=== PATIENT | female | born 1950 | race Caucasian/White ===

== ENCOUNTER → 2022-06-18 | Outpatient (CLI) | payer MEDICARE, SELFPAY ==
--- NOTE | 2022-06-18 | CYSPIN_PTH ---
PATIENT: SALVATORE LEE LOC: [facility] U#:[id number] AGE/SX: 71/F ROOM: RE06/18/[address]: Dr. Malik De La Cruz MD : 1950 BED: DIS: 06/18/2022 SPEC #: [id number] RECD: 06/18/22 15:00 STATUS: NICOLE MANISH #: [id number] PIOTR: 06/18/22 00:[address]: Malik De La Cruz DEPT: CYTOLOGY RECD BY: Ludwig Urias Tissues: Urine Procedures: Pap Stain (control) Special Stain Group II Cytospin Fluid HEADER OPERATION: Not noted PRE-OP DIAGNOSIS: Hematuria TISSUE SUBMITTED: Urine for cytology DIAGNOSIS CYTOLOGY Urine for cytology (cytospins): Negative for high-grade urothelial carcinoma (Yvonne system, category 2). AM:shira 06/19/22 COMMENT The specimen primarily contains benign squamous epithelial cells and crystalline debris. Clinical correlation is suggested. The Yvonne System for reporting urine cytology was used in the evaluation of this case. CYTOLOGY STUDY Slides are reviewed. CYTOLOGY GROSS Received is 20 ml of cloudy yellow fluid labeled with the patient's name and and designated per the requisition as urine. Submitted for cytology preparation. / keisha 06/19/2022 TC:5 CPT: 67181
[2022-06-18 17:29] LABS: Cytology, Body Fluid / CSF SEE PATHOLOGY REPORT
== END | disposition home or self-care (01) ==
PROVIDERS: Visit Provider Urology
DX: R31.9 Hematuria, unspecified (principal)
CPT/HCPCS: 88108; 88313

== ENCOUNTER → 2022-07-06 | Outpatient (CLI) | payer MEDICARE, SELFPAY ==
--- NOTE | 2022-07-06 12:52 | CT_ITS ---
STUDY: CT ABDOMEN AND PELVIS WITH AND WITHOUT CONTRAST REASON FOR EXAM: Female, 71 years old. GROSS HEMATURIA RADIATION DOSAGE (If Supplied By Facility): CTDIvol = ( 24.55 ) mGy, DLP = ( 3371.81 ) mGycm TECHNIQUE: Transaxial images were obtained from the dome of the diaphragm to the symphysis pubis without oral contrast. IV 100mL Isovue-300 was administered. Sagittal and coronal images were reconstructed. Individualized dose optimization techniques were used for this CT. COMPARISON: None. FINDINGS: The visualized lung bases are unremarkable. The visualized portions of the heart are within normal limits. There is decreased attenuation of the liver consistent with steatosis. There are surgical clips in the gallbladder fossa consistent with a prior cholecystectomy. There is a benign calcified granuloma of the spleen. Normal pancreas. Normal bilateral adrenal glands. There are bilateral nonobstructing renal calculi measuring up to 6 mm on the right and 3 mm on the left. Normal visualized stomach. Normal small intestine. There are multiple colonic diverticula consistent with diverticulosis. The appendix is visualized 3 and appears normal. Normal abdominal aorta. Normal inferior vena cava. Normal retroperitoneum. Normal urinary bladder. There is a small umbilical hernia containing fat. There are diffuse degenerative changes of the visualized lumbar spine. CT/CT Abd/Pelvis W/WO Contrast IMPRESSION: Bilateral nonobstructing renal calculi measuring up to 6 mm on the right. Fatty infiltration of the liver. Colonic diverticulosis. Degenerative changes of the lumbar spine. Electronically Signed: Gali Rodriguez MD at 8:17 EDT ,
[2022-07-06 13:25] LABS: CREATININE FINGERSTICK < 0.9 mg/dL (0.55-1.02); EGFR FINGERSTICK > 60.0000 mL/min (>60)
== END | disposition home or self-care (01) ==
PROVIDERS: PCP Family Medicine; Referring Provider Urology; Visit Provider Urology
DX: R31.0 Gross hematuria (principal); E11.9 Type 2 diabetes mellitus without complications
CPT/HCPCS: 74178; Q9967

== ENCOUNTER → 2022-11-06 | Outpatient (CLI) | payer MEDICARE, SELFPAY ==
[2022-11-06 10:28] LABS: Hematocrit 40.5 % (37-47); Mean Corp Hgb Conc 32.1 g/dL (32-36); Mean Corpuscular Hgb 31.2 pg (27.0-32.0); Mean Corpuscular Volume 97.1 fL (81-99); Mean Platelet Vol. 10.6 fl (6.2-12.0); Platelet Count 259 K/mm3 (150-450); RBC Distribution Width CV 12.8 % (11.6-14.6); RBC Distribution Width SD 45.3 fl (35.1-43.9); Red Blood Count 4.17 M/mm3 (4.2-5.4); White Blood Count 6.9 K/mm3 (4.4-11.0)
[2022-11-06 10:57] LABS: Anion Gap 11 (5-15); BUN 16 mg/dL (7-18); BUN/Creat Ratio 19.7 RATIO (10-20); Calcium,Total 9.6 mg/dL (8.5-10.1); Chloride 100 mmol/L (98-107); Creatinine, Serum 0.81 mg/dL (0.55-1.02); EST Glomerular Filtration Rate 74 mL/min (>60); Est Glom Filt Rate - Afr Amer 89 mL/min (>60); Glucose 209 mg/dL (74-106); Potassium 3.8 mmol/L (3.5-5.1); Sodium Level 137 mmol/L (136-145)
== END | disposition home or self-care (01) ==
LOC: PSN 08:45
PROVIDERS: PCP Family Medicine; Referring Provider Urology; Visit Provider Urology
DX: Z01.812 Encounter for preprocedural laboratory examination (principal); Z01.810 Encounter for preprocedural cardiovascular examination
CPT/HCPCS: 36415; 80048; 85027; 93005

== ENCOUNTER 2022-12-01 09:42 | Day surgery (SDC) | payer MEDICARE, SELFPAY ==
[2022-12-01] MEDS: Lactated Ringers 1,000 ML 15 ML IV (10:39)
[2022-12-01 10:48] VITALS: BP 135/89; PULSE 102; RESP 18; TEMP 36.8; O2SAT 95; BMI 42.2
[2022-12-01 10:56] LABS: Bedside Glucose 164 mg/dL (74-106)
--- NOTE | 2022-12-01 13:00 | PCM.HP.STD ---
HPI - General General Date of Service: 12/01/22 HPI Narrative SALVATORE LEE, is a 71 F who presents for cystoscopy and left stent placement for obstruction she had a acute stent removed after kidney stone surgery presents to the office with pain in the left side ultrasound in the office demonstrates hydronephrosis has been having gross hematuria so at this point plan to place a stent by leave it in for 3 weeks to let it heal up and then we will remove it later in the office in about 3 weeks. REPLACED BY [facility] Medical History (Updated 12/01/22 @ 10:45 by Joanie Orellana) CPAP (continuous positive airway pressure) dependence Diabetes History of irregular heartbeat Post-menopausal Pulmonary embolism Wears glasses Wears hearing aid Home Medications apixaban 5 mg tablet (Eliquis) 5 mg DAILY 12/01/22 [History Last Taken 11/29/22 08:00] ciprofloxacin HCl 500 mg tablet 500 mg PO BID #6 tabs 12/01/22 [Rx Last Taken Unknown] diltiazem HCl 240 mg capsule,extended release 24 hr 240 mg PO DAILY 12/01/22 [History Last Taken 12/01/22] loratadine 10 mg tablet (Claritin) 10 mg PO DAILY 12/01/22 [History Last Taken 11/30/22] metformin 500 mg tablet,extended release 24 hr 500 mg PO DAILY 12/01/22 [History Last Taken 12/01/22] phenazopyridine 100 mg tablet (Pyridium) 100 mg PO TID PRN pain 10 days #20 tabs 12/01/22 [Rx Last Taken Unknown] propafenone 225 mg tablet 225 mg TID 12/01/22 [History Last Taken 12/01/22] Allergy/AdvReac Type Severity Reaction Status Date / Time No Known Allergies Allergy Verified 12/01/22 10:29 Family History (Updated 12/01/22 @ 10:45 by Joanie Orellana) Mother Diabetes Surgical History (Updated 12/01/22 @ 10:47 by Joanie Orellana) History of laparoscopic cholecystectomy History of tonsillectomy Knee joint replacement status Vital Signs Vital Signs Vital Signs: 12/01/22 10:48 12/01/22 10:48 Temperature 98.2 F Temperature Source Temporal Pulse Rate 102 H Respiratory Rate 18 Respiratory Pattern Normal Blood Pressure 135/89 H Blood Pressure Mean 104 Blood Pressure Source Monitor Blood Pressure Position Semi-Fowlers Blood Pressure Location Left Arm Pulse Ox 95 Oxygen Delivery Method Room Air Weight Weight: 104.78 kg Body Mass Index (BMI) 42.2 Results Lab / Micro Data Labs: Laboratory Results - last 24 hr 12/01/22 10:34: POC Glucose 164 H
--- NOTE | 2022-12-01 13:01 | DCINST_ITS ---
Discharge Instructions Diet Discharge Diet: No restrictions, Light diet - advance as tolerated and Soft diet Activity Discharge Activity: Return to Normal Activity Follow Up Care Please Follow Up With: Malik De La Cruz MD When: call office for appt 3 weeks to remove stent Test Results: Test results from this visit will be discussed in further detail at your follow- up appointment, if applicable. Discharge Plan Admission Primary Reason for Your Visit: stent placement Attending Provider: Malik De La Cruz Primary Care Provider: Liu Srinivasan Discharge Orders/Prescriptions Prescriptions: New phenazopyridine [Pyridium] 100 mg tablet 100 mg PO TID PRN (Reason: pain) 10 Days Qty: 20 0RF ciprofloxacin HCl 500 mg tablet 500 mg PO BID Qty: 6 0RF Continued diltiazem HCl 240 mg capsule,extended release 24hr 240 mg PO DAILY propafenone 225 mg tablet 225 mg TID metformin 500 mg tablet extended release 24 hr 500 mg PO DAILY loratadine [Claritin] 10 mg Tablet 10 mg PO DAILY Held Eliquis 5 mg tablet 5 mg DAILY Hold Instructions: Resume on 12/29/22. Referrals / Follow Up: Malik De La Cruz MD [Med Staff - Active Staff] - Liu Srinivasan MD [Primary Care Provider] - Disposition Disposition (needs filled in before D/C Order can be placed): Home, Self Care
[2022-12-01] MEDS: Cefazolin 2 GM in 0.9% Normal Saline 100 ML IV (13:11)
--- NOTE | 2022-12-01 13:26 | PCM.OPRPT ---
Report of Operation Date of Procedure: 12/01/22 Pre-Operative Diagnosis: Left hydronephrosis and gross hematuria Post-Operative Diagnosis: The same Surgery/Procedure Performed:: Cystoscopy, left retrograde pyelogram pyelogram, left stent placement Description of Surgical Findings:: Patient was taken back to the operating room for smooth duction of general anesthesia she was placed in dorsolithotomy position. We then prepped and draped the patient in usual fashion when the bladder 21 Yoruba rigid cystourethroscope cannulated the left ureteral orifice with a cone-tip catheter performed a retrograde pyelogram contrast went up the ureter quite easily all the way up into the kidney no clear obstruction but there was some blood. She had a stent removed from a prior kidney stone surgery but was having pain and he and bleeding and hydronephrosis so then after through the wire I placed a wire up into the kidney and then placed a stent 6 right Yoruba by 26 cm stent we will leave the stent in for another 2 to 3 weeks let it heal up bladder was drained patient anesthetic was reversed taken back to PACU in good condition. Surgeon: Malik De La Cruz Type of Anesthesia: General Admit VTE Documentation VTE Present on Admission: No VTE Mechan Device Prophylaxis: SCD's VTE Pharm Prophylaxis ordered?: No
[2022-12-01 13:37] VITALS: BP 135/89; BP 136/71; PULSE 76; RESP 16; TEMP 36.6; O2SAT 97
[2022-12-01 13:42] VITALS: BP 128/72; BP 135/89; PULSE 75; RESP 16; O2SAT 94
[2022-12-01 13:47] VITALS: BP 130/71; BP 135/89; PULSE 76; RESP 16; O2SAT 95
[2022-12-01 13:52] VITALS: BP 130/71; BP 135/89; PULSE 75; RESP 16; TEMP 36.7; O2SAT 95
[2022-12-01 14:34] VITALS: BP 135/89
== END 2022-12-01 14:40 | disposition home or self-care (01) ==
LOC: SDC 09:44 → AC 09:54
PROVIDERS: PCP Family Medicine; Referring Provider Urology; Visit Provider Urology
PROC: (CPT 52332; principal; 2022-12-01 12:50)
DX: N13.30 Unspecified hydronephrosis (principal); E11.9 Type 2 diabetes mellitus without complications; R31.0 Gross hematuria; Z79.84 Long term (current) use of oral hypoglycemic drugs; Z79.01 Long term (current) use of anticoagulants; Z79.899 Other long term (current) drug therapy; Z87.442 Personal history of urinary calculi
CPT/HCPCS: 52332; 00910; 76000; 82962; J7120; C1769; C2617; J2405

== ENCOUNTER 2022-12-30 13:23 | Emergency (ER) | payer MEDICARE, SELFPAY ==
[2022-12-30 13:24] VITALS: BP 151/80; PULSE 92; RESP 16; TEMP 36.6; O2SAT 97; BMI 41.7
--- NOTE | 2022-12-30 13:39 | CT_ITS ---
STUDY: CT ABDOMEN AND PELVIS WITHOUT CONTRAST REASON FOR EXAM: Female, 72 years old. Right flank pain RADIATION DOSAGE (If Supplied By Facility): CTDIvol = ( 21.84 ) mGy, DLP = ( 1085.83 ) mGycm TECHNIQUE: Transaxial images were obtained from the dome of the diaphragm to the symphysis pubis without oral contrast, and without intravenous contrast. Sagittal and coronal images were reconstructed. Individualized dose optimization techniques were used for this CT. COMPARISON: Comparison is made with prior examination July 06, 2022. FINDINGS: The visualized lung bases are unremarkable. The visualized portions of the heart are within normal limits. There is decreased attenuation of the liver consistent with steatosis. There are surgical clips in the gallbladder fossa consistent with a prior cholecystectomy. Normal spleen. Normal pancreas. Normal bilateral adrenal glands. Moderate degree of the right hydronephrosis due to a 4.5 mm calculus in the distal portion of the right ureter just proximal to the ureterovesical junction. Right perinephric stranding. Multiple nonobstructive right intrarenal calculi. The largest is in the lower pole and measures 8.3 mm. Mild degree of left hydronephrosis. No obstructive uropathy is seen on the left side at this time. Incidental note is made of a left retroaortic renal vein. There is a small hiatal hernia. Normal small intestine. There are multiple colonic diverticula consistent with diverticulosis. The appendix is visualized and appears normal. There is scattered atherosclerotic calcification of the abdominal aorta, without a demonstrated aneurysm. Normal inferior vena cava. Normal retroperitoneum. The urinary bladder is contracted. Normal abdominal wall. There are degenerative changes of the visualized lumbar spine. CT/Abdomen/Pelvis without Cont IMPRESSION: 4.5 mm calculus in the distal portion of the right ureter just proximal to the ureterovesical junction causing right hydronephrosis. Nonobstructive right intrarenal calculi. Fatty infiltration of the liver. The patient is status post cholecystectomy. Electronically Signed: Rusty Perdue MD at 14:37 EDT ,
--- NOTE | 2022-12-30 13:40 | ED.VIS.FEGU ---
HPI HPI - Female History of Present Illness Chief Complaint: Flank Pain Narrative Narrative: 72-year-old female with history of kidney stones presents with acute onset right flank pain which began last evening. She states it feels like previous kidney stone although she last kidney stone she had was on the left side. She states she was seen by Dr. De La Cruz. She states that she did have a stent placed on the left side for her kidney stones back at that time. She states that there was a small stone noted in the right side however she was asymptomatic on this side. She states she did not receive a stent at that time because her ureter was narrow. Patient denies fever or chills. Denies nausea or vomiting. She states she does have dysuria and urinary frequency. Patient also reports that she had diarrhea today. She is unsure if it is related to what she ate last night. She states that she had mixed vegetables as well as a salad. This morning she ate 1 hard-boiled egg. [facility] Medical History CPAP (continuous positive airway pressure) dependence Diabetes History of irregular heartbeat Post-menopausal Pulmonary embolism Wears glasses Wears hearing aid Home Medications apixaban 5 mg tablet (Eliquis) 5 mg DAILY 12/01/22 [History Last Taken 11/29/22 08:00] ciprofloxacin HCl 500 mg tablet 500 mg PO BID #6 tabs 12/01/22 [Rx Last Taken Unknown] diltiazem HCl 240 mg capsule,extended release 24 hr 240 mg PO DAILY 12/01/22 [History Last Taken 12/01/22] loratadine 10 mg tablet (Claritin) 10 mg PO DAILY 12/01/22 [History Last Taken 11/30/22] metformin 500 mg tablet,extended release 24 hr 500 mg PO DAILY 12/01/22 [History Last Taken 12/01/22] phenazopyridine 100 mg tablet (Pyridium) 100 mg PO TID PRN pain 10 days #20 tabs 12/01/22 [Rx Last Taken Unknown] propafenone 225 mg tablet 225 mg TID 12/01/22 [History Last Taken 12/01/22] tramadol 50 mg tablet 50 mg PO Q6H PRN pain 3 days #12 tabs 12/30/22 [Rx Last Taken Unknown] Allergy/AdvReac Type Severity Reaction Status Date / Time chlorpheniramine AdvReac Other Verified 12/30/22 13:28 [From Aller-Chlor Decongestant] oxycodone AdvReac Other Verified 12/30/22 13:28 pseudoephedrine AdvReac Other Verified 12/30/22 13:28 [From Aller-Chlor Decongestant] Family History Mother Diabetes Surgical History History of laparoscopic cholecystectomy History of tonsillectomy Knee joint replacement status Social History Smoking Status: Never smoker EXAM Physical Exam Const Vital Signs: 12/30/22 13:24 Temperature 98 F Temperature Source Temporal Pulse Rate 92 Respiratory Rate 16 Blood Pressure 151/80 H Blood Pressure Mean 103 Pulse Ox 97 Oxygen Delivery Method Room Air Positive well nourished General Appearance ED: NAD HEENT Reports moist mucous membranes Eyes PERRL and EOMs intact bilaterally General Eye ED: Negative for pale conjunctiva or scleral icterus Neck no lymphadenopathy Chest Wall inspection of chest normal Resp normal respiratory effort and clear to auscultation bilaterally Cardio regular rate and regular rhythm GI Palpation: tender RUQ Back/Spine General Back: CVA tenderness right Neuro oriented x3 Sensorium / Orientation: alert Psych mental status grossly normal Skin no rashes or lesions noted MDM MDM MDM Narrative Medical decision making narrative: 72-year-old female presenting with right flank pain. She is concerned with a kidney stone. He states he did have diarrhea today. Denies black or bloody stool. I did consider acute cholecystitis however the patient had does not a gallbladder. Differential includes gastritis, GERD, diverticulitis, colitis, kidney stone, pyelonephritis, UTI. CBC to assess white blood cell count, hemoglobin, platelets, differential. CMP to assess liver function, renal function, glucose, anion gap. Lipase to assess for pancreatitis. Patient given 4 mg of morphine and 4 mg of Zofran. Urinalysis will be obtained to assess for UTI and occult blood. CT of the and pelvis without contrast will be obtained to rule out kidney stone. CBC shows slight leukocytosis. Hemoglobin monitor stable. Platelets are normal. Creatinine slightly elevated 1.26 today. She was given a liter normal saline. Electrolytes unremarkable. LFTs are unremarkable. Lipase is normal. Urinalysis negative for infection. Patient's pain was controlled with morphine. CT of the abdomen pelvis without contrast shows a 4.5 distal ureteral stone on the right. Discussed with Dr. De La Cruz who believed that the patient would likely pass the stone since it is distal in the ureter. He recommended outpatient follow-up. Patient very hesitant to take [place] because she is very much did not like oxycodone. She stated made her very drowsy and she was unable to wake up. She was amenable to trying Ultram. First dose was given in the ER. She will be given a prescription for this for home. She will follow-up with urology. Return precautions discussed. Because of her creatinine being elevated today I did recommend that she stay away from NSAIDs. She acknowledges standing. Impression: 1. 4.5 mm right UVJ stone 2. Hematuria Lab Data Labs: Laboratory Results - last 24 hr 12/30/22 12/30/22 12/30/22 13:30 13:45 13:45 WBC 14.1 H RBC 4.59 Hgb 14.2 Hct 43.2 MCV 94.1 MCH 30.9 MCHC 32.9 RDW Std Deviation 43.8 RDW Coeff of Julio 12.7 Plt Count 270 MPV 10.2 Immature Gran % (Auto) 0.300 Neut % (Auto) 77.7 H Lymph % (Auto) 13.8 L [place] % (Auto) 7.2 Eos % (Auto) 0.6 Baso % (Auto) 0.4 Absolute Neuts (auto) 10.9 H Absolute Lymphs (auto) 1.94 Nucleated RBC % 0 Sodium 133 L Potassium 3.6 Chloride 101 Carbon Dioxide 25.0 Anion Gap 7 BUN 16 Creatinine 1.26 H Estim Creat Clear Calc 31.92 Est GFR (MDRD) Af Amer 54 L Est GFR (MDRD) Non-Af 44 L BUN/Creatinine Ratio 12.7 Glucose 150 H Calcium 10.2 H Total Bilirubin 0.60 AST 25 ALT 20 Alkaline Phosphatase 90 Total Protein 8.4 H Albumin 3.9 Globulin 4.5 H Albumin/Globulin Ratio 0.9 Lipase 33 Urine Color Yellow Urine Clarity Clear Urine pH 6.0 Ur Specific [place] 1.015 Urine Protein Negative Urine Glucose (UA) Normal Urine Ketones Negative Urine Occult Blood 50 H Urine Nitrite Negative Urine Bilirubin Negative Urine Urobilinogen Normal Ur Leukocyte Esterase Negative Urine RBC 0 SEEN Urine WBC 0-5 SEEN Ur Squamous Epith Cells 0-5 SEEN Urine Bacteria 0 SEEN Urine Mucus 0 SEEN Radiography Diagnostic Testing: Clinical Impression(s) from Imaging Studies Abdomen/Pelvis CT 12/30/22 13:39 IMPRESSION: 4.5 mm calculus in the distal portion of the right ureter just proximal to the ureterovesical junction causing right hydronephrosis. Nonobstructive right intrarenal calculi. Fatty infiltration of the liver. The patient is status post cholecystectomy. Electronically Signed: Rusty Perdue MD at 14:37 EDT , Discharge Plan Triage Chief Complaint: Flank Pain ED Provider: Manav Hicks Dx/Rx/DC Orders Instructions: ED Kidney Stone w/ Colic Prescriptions: New tramadol 50 mg tablet 50 mg PO Q6H PRN (Reason: pain) 3 Days Qty: 12 0RF No Action diltiazem HCl 240 mg capsule,extended release 24hr 240 mg PO DAILY propafenone 225 mg tablet 225 mg TID metformin 500 mg tablet extended release 24 hr 500 mg PO DAILY loratadine [Claritin] 10 mg Tablet 10 mg PO DAILY Eliquis 5 mg tablet 5 mg DAILY Hold Instructions: Resume on 12/29/22. phenazopyridine [Pyridium] 100 mg tablet 100 mg PO TID PRN (Reason: pain) 10 Days Qty: 20 0RF ciprofloxacin HCl 500 mg tablet 500 mg PO BID Qty: 6 0RF Primary Care Provider: Liu Srinivasan Referrals: Malik De La Cruz MD [Med Staff - Active Staff] - As soon as possible Liu Srinivasan MD [Primary Care Provider] - Disposition Disposition: Home, Self Care
[2022-12-30] MEDS: Ondansetron 4 MG/2 ML Vial IV (13:53)
[2022-12-30] MEDS: Morphine 4 MG/ML Syringe IV (13:55)
[2022-12-30 14:11] LABS: Absolute Lymphocyte Count 1.94 X10^3/uL (0.83-4.51); Absolute Neutrophil Count 10.9 X10^3/uL (2.0-7.7); Basophil# 0.05 X10^3/uL; Basophil% 0.4 % (0-1); Eosinophil# 0.08 X10^3/uL; Eosinophils% 0.6 % (0-5); Hematocrit 43.2 % (37-47); Hemoglobin 14.2 g/dL (12.0-15.0); Lymphocyte # 1.94 X10^3/ul (0.83-4.51); Lymphocyte % 13.8 % (19-41); Mean Corp Hgb Conc 32.9 g/dL (32-36); Mean Corpuscular Hgb 30.9 pg (27.0-32.0); Mean Corpuscular Volume 94.1 fL (81-99); Mean Platelet Vol. 10.2 fl (6.2-12.0); Monocyte# 1.01 X10^3/uL; Monocyte% 7.2 % (0-10); NRBC Flagged by Analyzer 0 % (0-5); Neutrophil # 10.94 X10^3/uL (2.7-7.7); Neutrophil % 77.7 % (47-70); Platelet Count 270 K/mm3 (150-450); RBC Distribution Width CV 12.7 % (11.6-14.6); RBC Distribution Width SD 43.8 fl (35.1-43.9); Red Blood Count 4.59 M/mm3 (4.2-5.4); White Blood Count 14.1 K/mm3 (4.4-11.0)
[2022-12-30 14:17] LABS: Bacteria 0 SEEN /hpf (None Seen); Mucous, Urine 0 SEEN /hpf (<or=2+); Red Blood Cells-Urine 0 SEEN /hpf (0-5)
[2022-12-30 14:23] LABS: Color, Urine Yellow (Yellow); Glucose, Dipstick Normal (Normal); Ketone-Dipstick Negative (Negative); Leukocyte Esterase-Dipstick Negative /ul (Negative); Nitrite-Dipstick Negative (Negative); Occult Blood-Urine 50 /ul (Negative); Protein-Dipstick Negative (Negative); Specific Gravity, Urine 1.015 (1.002-1.030); Urine Bilirubin Dipstick Negative (Negative); Urine Clarity Clear (Clear); Urine Urobilinogen Normal (Normal)
[2022-12-30 14:28] LABS: ALB/GLOB Ratio 0.9 RATIO (0.9-2.4); AST(SGOT) 25 U/L (15-37); Alanine Aminotransfer ALT/SGPT 20 U/L (13-56); Albumin, Serum 3.9 g/dL (3.2-5.0); Alkaline Phosphatase 90 U/L (45-117); Anion Gap 7 (5-15); BUN 16 mg/dL (7-18); BUN/Creat Ratio 12.7 RATIO (10-20); Calcium,Total 10.2 mg/dL (8.5-10.1); Chloride 101 mmol/L (98-107); Creatinine, Serum 1.26 mg/dL (0.55-1.02); EST Glomerular Filtration Rate 44 mL/min (>60); Est Glom Filt Rate - Afr Amer 54 mL/min (>60); Estimated Creatinine Clearance 31.92 ml/min; Globulin 4.5 g/dL (2.2-4.2); Glucose 150 mg/dL (74-106); Lipase 33 U/L (13-75); Potassium 3.6 mmol/L (3.5-5.1); Protein, Total 8.4 g/dL (6.4-8.2); Sodium Level 133 mmol/L (136-145)
[2022-12-30 14:32] LABS: Squamous Epithelial Cells - UA 0-5 SEEN /hpf (5-10); White Blood Cells 0-5 SEEN /hpf (0-5)
[2022-12-30] MEDS: 0.9% Normal Saline 1,000 ML 999 ML IV (14:41)
[2022-12-30] MEDS: traMADol 50 MG Tablet PO (15:20)
[2022-12-30 15:24] VITALS: BP 141/75; O2SAT 95
== END 2022-12-30 15:32 | disposition home or self-care (01) ==
PROVIDERS: Emergency Provider Student in an Organized Health Care Education/Training Program; PCP Family Medicine; Visit Provider Student in an Organized Health Care Education/Training Program
DX: N13.2 Hydronephrosis with renal and ureteral calculous obstruction (principal); E11.9 Type 2 diabetes mellitus without complications; R31.9 Hematuria, unspecified; Z87.442 Personal history of urinary calculi
CPT/HCPCS: 74176; 80053; 81001; 83690; 85025; 87086; 87088; 96361; 96374; 96375; 99283; J7030; A4216; J2405

== ENCOUNTER → 2023-02-02 | Outpatient (CLI) | payer MEDICARE, SELFPAY | END | disposition home or self-care (01) | PROVIDERS: PCP Family Medicine; Visit Provider Urology | DX: N21.0 Calculus in bladder (principal) | CPT/HCPCS: 82360 ==

== ENCOUNTER → 2023-06-08 | Outpatient (CLI) | payer MEDICARE, SELFPAY ==
[2023-06-18 14:40] LABS: Source Not Provided
== END | disposition home or self-care (01) ==
LOC: LABSPEC 16:32
PROVIDERS: PCP Family Medicine; Referring Provider Urology; Visit Provider Urology
DX: N20.1 Calculus of ureter (principal)
CPT/HCPCS: 82360

== ENCOUNTER 2024-07-18 09:33 | Observation (INO) | payer MEDICARE, SELFPAY ==
[2024-07-18] VITALS (8 sets, daily range): BP systolic 133–159; BP diastolic 73–93; PULSE 71–99; RESP 14–20; TEMP 36.2–37; O2SAT 96–100; BMI 42.3; BMI 41.7
[2024-07-18 10:16] LABS: Bacteria 0 SEEN /hpf (None Seen); Mucous, Urine 0 SEEN /hpf (<or=2+); Squamous Epithelial Cells - UA 0 SEEN /hpf (5-10); White Blood Cells 0 SEEN /hpf (0-5)
[2024-07-18] MEDS: Ondansetron 4 MG/2 ML Vial IV (10:17)
[2024-07-18 10:18] LABS: Color, Urine Yellow (Yellow); Glucose, Dipstick Normal (Normal); Ketone-Dipstick Negative (Negative); Leukocyte Esterase-Dipstick 25 /ul (Negative); Nitrite-Dipstick Negative (Negative); Occult Blood-Urine 250 /ul (Negative); Protein-Dipstick 30 mg/dl (Negative); Specific Gravity, Urine 1.015 (1.002-1.030); Urine Bilirubin Dipstick Negative (Negative); Urine Clarity Sl. Cloudy (Clear); Urine Urobilinogen 1 mg/dl (Normal); Urine pH 6.5 (5.0 - 8.0)
[2024-07-18] MEDS: Morphine 4 MG/ML Syringe IV (10:18)
[2024-07-18 10:24] LABS: Red Blood Cells-Urine > 100 SEEN /hpf (0-5)
[2024-07-18 10:32] LABS: Absolute Lymphocyte Count 1.61 X10^3/uL (0.83-4.51); Absolute Neutrophil Count 4.9 X10^3/uL (2.0-7.7); Basophil# 0.06 X10^3/uL; Basophil% 0.9 % (0-1); Eosinophil# 0.06 X10^3/uL; Eosinophils% 0.9 % (0-5); Hematocrit 39.7 % (37-47); Hemoglobin 12.8 g/dL (12.0-15.0); Lymphocyte # 1.61 X10^3/ul (0.83-4.51); Lymphocyte % 23.1 % (19-41); Mean Corp Hgb Conc 32.2 g/dL (32-36); Mean Corpuscular Volume 96.1 fL (81-99); Mean Platelet Vol. 9.6 fl (6.2-12.0); Monocyte# 0.36 X10^3/uL; Monocyte% 5.2 % (0-10); NRBC Flagged by Analyzer 0 % (0-5); Neutrophil # 4.86 X10^3/uL (2.7-7.7); Neutrophil % 69.5 % (47-70); Platelet Count 226 K/mm3 (150-450); RBC Distribution Width CV 12.8 % (11.6-14.6); RBC Distribution Width SD 45.3 fl (35.1-43.9); Red Blood Count 4.13 M/mm3 (4.2-5.4)
[2024-07-18 10:45] LABS: Anion Gap 7 (5-15); BUN 14 mg/dL (7-18); BUN/Creat Ratio 20.1 RATIO (10-20); Calcium,Total 9.5 mg/dL (8.5-10.1); Chloride 106 mmol/L (98-107); EST Glomerular Filtration Rate 87 mL/min (>60); Est Glom Filt Rate - Afr Amer 106 mL/min (>60); Estimated Creatinine Clearance 73.88 ml/min; Glucose 175 mg/dL (74-106); Sodium Level 139 mmol/L (136-145)
[2024-07-18] MEDS: Cefazolin 1 GM/50 ML BAG IV ×2 (12:04→22:24)
[2024-07-18] MEDS: Atorvastatin Calcium 10 MG Tablet PO (22:32)
[2024-07-19] VITALS (11 sets, daily range): BP systolic 125–147; BP diastolic 76–90; PULSE 78–93; RESP 16–18; TEMP 36.3–37.6; O2SAT 90–98; BMI 41.7
[2024-07-19] MEDS: Loratadine 10 MG Tablet PO (09:32)
[2024-07-19] MEDS: dilTIAZem CD 240 MG Capsule PO (09:32)
[2024-07-19] MEDS: Losartan Potassium 25 MG Tablet PO (09:32)
[2024-07-19] MEDS: Lactated Ringers 1,000 ML 15 ML IV (15:41)
[2024-07-19 16:01] LABS: Bedside Glucose 129 mg/dL (74-106)
[2024-07-19] MEDS: Cefazolin 1 GM/50 ML BAG IV (16:29)
[2024-07-19] MEDS: Ketorolac 15 MG/ML Vial IV (19:24)
[2024-07-19] MEDS: Atorvastatin Calcium 10 MG Tablet PO (20:12)
== END 2024-07-19 20:30 | disposition home or self-care (01) ==
LOC: ED 12:07 → MS3 14:27
PROVIDERS: Admitting Provider Urology; Emergency Provider Emergency Medicine; PCP Physician Assistant; Visit Provider Urology
PROC: 0TJ98ZZ Inspection of Ureter, Via Natural or Artificial Opening Endoscopic (ICD-10-PCS; CPT 52352; principal; 2024-07-19 15:40)
DX: N13.2 Hydronephrosis with renal and ureteral calculous obstruction (principal); I48.91 Unspecified atrial fibrillation; E11.9 Type 2 diabetes mellitus without complications; Z79.01 Long term (current) use of anticoagulants; Z79.84 Long term (current) use of oral hypoglycemic drugs; Z86.711 Personal history of pulmonary embolism; Z79.899 Other long term (current) drug therapy
CPT/HCPCS: 52356; 00918; 74176; 80048; 81001; 82962; 85025; 93005; 96365; 96366; 96375; 99221; 99285; J7050; J7120; A4216; C1769; C2617; G0378; J2405

== ENCOUNTER → 2024-09-11 | Outpatient (CLI) | payer MEDICARE, SELFPAY ==
--- NOTE | 2024-09-11 14:00 | RAD_ITS ---
HISTORY: KIDNEY STONE. TECHNIQUE: XR Abdomen 1 View. COMPARISON: CT 07/18/2024. FINDINGS: BOWEL GAS PATTERN: No dilated bowel loops identified. FREE AIR: Not assessed on supine view. CALCIFICATIONS: Small calculi in the right renal pelvis noted. Soft tissue calcification adjacent to the right pelvis again seen. BONES: Degenerative change. SOFT TISSUES: Right upper quadrant surgical clips. RAD/Abdomen Single View IMPRESSION: Right nephrolithiasis. Electronically Signed: Kristi Suh MD at 12:01 EST ,
== END | disposition home or self-care (01) ==
PROVIDERS: PCP Physician Assistant; Referring Provider Nurse Practitioner; Visit Provider Nurse Practitioner
DX: N20.0 Calculus of kidney (principal)
CPT/HCPCS: 74018

== ENCOUNTER → 2024-10-10 | Outpatient (CLI) | payer MEDICARE, SELFPAY ==
[2024-10-10 19:19] LABS: Color, Urine Yellow (Yellow); Glucose, Dipstick Normal (Normal); Ketone-Dipstick Negative (Negative); Leukocyte Esterase-Dipstick 100 /ul (Negative); Nitrite-Dipstick Negative (Negative); Occult Blood-Urine 250 /ul (Negative); Protein-Dipstick 30 mg/dl (Negative); Specific Gravity, Urine 1.015 (1.002-1.030); Urine Bilirubin Dipstick Negative (Negative); Urine Clarity Sl. Cloudy (Clear); Urine Urobilinogen Normal (Normal)
== END | disposition home or self-care (01) ==
PROVIDERS: Urology; PCP Physician Assistant; Referring Provider Nurse Practitioner; Visit Provider Nurse Practitioner
DX: R30.0 Dysuria (principal)
CPT/HCPCS: 81002; 87086; 87088

== ENCOUNTER 2024-12-10 07:59 | Emergency (ER) | payer MEDICARE, SELFPAY ==
[2024-12-10 08:00] VITALS: BP 166/78; PULSE 84; RESP 16; TEMP 36.3; O2SAT 97; BMI 40.4
--- NOTE | 2024-12-10 08:14 | EX.ED.DYSGE1 ---
HPI History of Present Illness Chief Complaint: Flank Pain Informant: patient Onset/Context/Timing Onset: Weeks (1) Context: Gradual Onset Timing: Continuous Quality: Burning, aching Location: Bilateral flank areas Worsened by: Nothing Relieved by: Nothing Narrative Narrative: Patient presents with bilateral flank pain that has been getting worse over the past week. Patient states that it is gradually getting worse. Patient stated she noted some dark urine over the past couple days. Patient states she has a history of kidney stones and states this feels similar to prior episodes. Patient states her pain is mainly over the bilateral flank areas. Patient describes it as burning and aching. Patient denies any fevers or chills. Patient states nothing makes her pain better and nothing makes it worse. [facility] Medical History Kidney stones Non-smoker Atrial fibrillation Wears hearing aid Wears glasses Post-menopausal Diabetes Pulmonary embolism CPAP (continuous positive airway pressure) dependence History of irregular heartbeat Home Medications ?Medication ?Instructions ?Recorded ?Last Taken ?Type apixaban 5 mg tablet (Eliquis) 5 mg PO BID 12/01/22 07/16/24 History diltiazem HCl 240 mg 240 mg PO DAILY 12/01/22 07/17/24 History capsule,extended release 24 hr loratadine 10 mg tablet (Claritin) 10 mg PO DAILY 12/01/22 11/30/22 History metformin 500 mg tablet,extended 500 mg PO BID 12/01/22 07/17/24 History release 24 hr propafenone 225 mg tablet 225 mg PO TID 12/01/22 07/17/24 History losartan 25 mg tablet 25 mg PO DAILY 07/18/24 07/17/24 History potassium citrate 10 mEq (1,080 10 meq PO BID 07/18/24 07/17/24 History mg) tablet,extended release rosuvastatin 5 mg tablet 5 mg PO DAILY 07/18/24 07/17/24 History allopurinol 100 mg tablet 100 mg PO DAILY #90 tabs 07/19/24 Unknown Rx ciprofloxacin HCl 500 mg tablet 500 mg PO BID #10 tabs 07/19/24 Unknown Rx (Cipro) phenazopyridine 100 mg tablet 100 mg PO TID #14 tabs 07/19/24 Unknown Rx (Pyridium) tamsulosin 0.4 mg capsule (Flomax) 0.4 mg PO DAILY #10 caps 07/19/24 Unknown Rx cephalexin 500 mg capsule 500 mg PO Q12 #14 CAPSULES 12/10/24 Unknown Rx Allergy/AdvReac Type Severity Reaction Status Date / Time chlorpheniramine (From AdvReac Other Verified 12/10/24 08:15 Aller-Chlor Decongestant) oxycodone AdvReac Other Verified 12/10/24 08:15 pseudoephedrine (From AdvReac Other Verified 12/10/24 08:15 Aller-Chlor Decongestant) Family History Mother Diabetes Surgical History History of cholecystectomy Knee joint replacement status History of tonsillectomy History of laparoscopic cholecystectomy Social History Smoking Status: Never smoker ROS ROS ED Constitutional Constitutional ED: Denies chills or fever(s) Eyes Eyes: Denies blurry vision or change in vision ENT ENT ED: Denies rhinorrhea or sore throat Cardiovascular Cardiovascular: Denies chest pain or palpitations Respiratory/Chest Respiratory/Chest: Denies cough or dyspnea Gastrointestinal Gastrointestinal: Denies nausea or vomiting Genitourinary Genitourinary ED: Reports dysuria and hematuria Musculoskeletal Musculoskeletal: Reports back pain; Denies neck pain Integumentary Denies abscess or rash Neurologic Neurologic: Denies headache(s) or weakness Allergic/Immunologic Allergic/Immunologic ED: Denies mouth swelling or urticaria EXAM Physical Exam Const Vital Signs: 12/10/24 08:00 12/10/24 10:00 Temperature 97.4 F L Temperature Source Temporal Pulse Rate 84 73 Respiratory Rate 16 16 Blood Pressure 166/78 H 138/74 H Blood Pressure Mean 107 95 Pulse Ox 97 94 Oxygen Delivery Method Room Air Room Air Positive well nourished and well developed Constitutional Narrative: BMI is 40.5 General Appearance ED: well developed and NAD HEENT Reports moist mucous membranes Neck supple and no JVD Resp normal respiratory effort and clear to auscultation bilaterally Cardio regular rate and regular rhythm GI non-tender and non-distended Palpation: soft Back/Spine General Back: CVA tenderness bilateral Neuro oriented x3, CN's II-XII intact bilaterally and no sensory deficits noted Sensorium / Orientation: alert Motor Exam: strength 5/5 throughout Psych mental status grossly normal MDM MDM MDM Narrative Medical decision making narrative: Differential diagnosis includes ureteral calculus, renal calculus, urinary tract infection, diverticulitis, electrolyte abnormality, and viral illness. CBC will be obtained to assess for leukocytosis and anemia. Basic metabolic profile will be obtained to assess for electrolyte abnormality renal function. Urinalysis will be obtained to assess for urinary tract infection and hematuria. CT scan of the abdomen pelvis will be obtained to assess for ureteral calculus and renal calculus. PT with INR and PTT will be obtained to assess for coagulopathy. Lab Data Attestation: I reviewed the patient's lab results. Lab results narrative: CBC was reviewed and was within normal limits. Basic metabolic profile was reviewed and showed an elevated glucose of 200. The remainder was within normal limits. Urinalysis was reviewed. Cassette esterase was 500 and occult blood was 250. There are 50-100 red blood cells and 50-100 white blood cells. There is 1+ bacteria. Labs: Laboratory Results - last 24 hr 12/10/24 08:17 WBC 7.9 RBC 4.20 Hgb 13.4 Hct 39.6 MCV 94.3 MCH 31.9 MCHC 33.8 RDW Std Deviation 43.4 RDW Coeff of Julio 12.7 Plt Count 248 MPV 9.9 Immature Gran % (Auto) 0.100 Neut % (Auto) 67.1 Lymph % (Auto) 25.3 [place] % (Auto) 5.3 Eos % (Auto) 1.6 Baso % (Auto) 0.6 Absolute Neuts (auto) 5.3 Absolute Lymphs (auto) 2.00 Nucleated RBC % 0 Sodium 139 Potassium 3.8 Chloride 103 Carbon Dioxide 20.4 L Anion Gap 15 BUN 13 Creatinine 0.69 L Estim Creat Clear Calc 72.09 Est GFR (MDRD) Non-Af 92 BUN/Creatinine Ratio 19.3 Glucose 200 H Calcium 9.8 Urine Color Yellow Urine Clarity Cloudy Urine pH 6.0 Ur Specific Gracey 1.030 Urine Protein 100 H Urine Glucose (UA) Normal Urine Ketones Negative Urine Occult Blood 250 H Urine Nitrite Negative Urine Bilirubin Negative Urine Urobilinogen Normal Ur Leukocyte Esterase 500 H Urine RBC 50-100 SEEN Urine WBC 50-100 SEEN Ur Squamous Epith Cells 0 SEEN Urine Bacteria 1+ Urine Mucus 0 SEEN Radiography Diagnostic Testing: Clinical Impression(s) from Imaging Studies Abdomen/Pelvis CT 12/10/24 08:29 IMPRESSION: Right kidney stones, many of which are nonobstructing. Question if there is obstruction within the upper pole calyx producing mild right hydronephrosis. No hydroureter identified. Post cholecystectomy. Reading Location: [facility], [facility] CT scan of the abdomen and pelvis was obtained. There are right renal stones. There is a questionable obstruction in the upper pole calyx producing mild right hydronephrosis. There is no hydroureter noted. There is no free air or free fluid. This was interpreted by the radiologist and results were independently reviewed by myself. Treatment and Re-Evaluation :: Patient was given morphine and Zofran. Patient was given a dose of Rocephin. Patient was advised of the findings. Patient was advised that her pain is mainly from the infection and not the stones. Patient was given a prescription for Keflex. Patient was instructed to follow-up with Dr. De La Cruz in 5 to 7 days. Patient was instructed to return if worse in any way. Patient understood and was agreeable with plan. All questions were answered. Discharge Plan Triage Chief Complaint: Flank Pain ED Provider: Silverio Gallardo Dx/Rx/DC Orders Clinical Impression: Urinary tract infection, Anticoagulant long-term use, Renal calculi Instructions: ED Cystitis Female Adult Prescriptions: New cephalexin 500 mg capsule 500 mg PO Q12 Qty: 14 0RF No Action diltiazem HCl 240 mg capsule,extended release 24hr 240 mg PO DAILY propafenone 225 mg tablet 225 mg PO TID metformin 500 mg tablet extended release 24 hr 500 mg PO BID loratadine [Claritin] 10 mg Tablet 10 mg PO DAILY Eliquis 5 mg tablet 5 mg PO BID potassium citrate 10 mEq (1,080 mg) tablet extended release 10 meq PO BID losartan 25 mg tablet 25 mg PO DAILY rosuvastatin 5 mg tablet 5 mg PO DAILY allopurinol 100 mg tablet 100 mg PO DAILY Qty: 90 3RF ciprofloxacin HCl [Cipro] 500 mg tablet 500 mg PO BID Qty: 10 0RF tamsulosin [Flomax] 0.4 mg capsule 0.4 mg PO DAILY Qty: 10 0RF phenazopyridine [Pyridium] 100 mg tablet 100 mg PO TID Qty: 14 0RF Primary Care Provider: Fernando Ocasio Referrals: Fernando Ocasio, PA-C [Primary Care Provider] - 5-7 Days Malik De La Cruz MD [Med Staff - Active Staff] - 3-5 Days Print Language: Slovenian Disposition Disposition: Home, Self Care
--- NOTE | 2024-12-10 08:29 | CT_ITS ---
PROCEDURE: ABDOMEN/PELVIS WITHOUT CONT 12/10/2024 REASON FOR EXAM: FLANK PAIN History of bilateral kidney stones. Cholecystectomy. History of atrial fibrillation and pulmonary embolism. Difficulty in breathing. TECHNIQUE: Abdomen and pelvis CT without intravenous contrast. Noncontrast technique limits evaluation of the abdominal and pelvic viscera. Coronal and Sagittal reconstruction series were provided. One or more dose reduction techniques were used (e.g., Automated exposure control, adjustment of the mA and/or kV according to patient size, use of iterative reconstruction technique). PATIENT PREPARATION: Per protocol ORAL CONTRAST TYPE: None. AMOUNT: mL CTDI: 21.24. DLP: 1034.5 COMPARISON: None. FINDINGS: Lung bases: Clear lung bases. No pleural effusions. Cholecystectomy clips in the gallbladder fossa. The liver, spleen, pancreas, and adrenal glands are unremarkable Kidneys: Mild right hydronephrosis. There are 2 5 mm calculi in the right renal pelvis this appears to be producing partly contributing to lobe right hydronephrosis. No hydroureter is seen. Several other nonobstructing right kidney calculi. Left kidney is unremarkable. Bladder: Not distended. Unremarkable as seen. Reproductive Organs: Unremarkable. Bowel: Normal caliber and appearance. Appendix: No signs of appendicitis. Lymph nodes: No adenopathy. Vasculature: No significant plaque burden Peritoneum / Retroperitoneum: Free fluid or free air. Bones: Unremarkable. No aggressive lesions. CT/Abdomen/Pelvis without Cont IMPRESSION: Right kidney stones, many of which are nonobstructing. Question if there is ob struction within the upper pole calyx producing mild right hydronephrosis. No hydroureter identified. Post cholecystectomy. Reading [facility]
[2024-12-10 08:36] LABS: Mucous, Urine 0 SEEN /hpf (<or=2+); Squamous Epithelial Cells - UA 0 SEEN /hpf (5-10)
[2024-12-10] MEDS: Morphine 4 MG/ML Syringe IV (08:38)
[2024-12-10] MEDS: Ondansetron 4 MG/2 ML Vial IV (08:38)
[2024-12-10 08:40] LABS: Absolute Neutrophil Count 5.3 X10^3/uL (2.0-7.7); Basophil# 0.05 X10^3/uL; Basophil% 0.6 % (0-1); Eosinophil# 0.13 X10^3/uL; Eosinophils% 1.6 % (0-5); Hematocrit 39.6 % (37-47); Hemoglobin 13.4 g/dL (12.0-15.0); Lymphocyte % 25.3 % (19-41); Mean Corp Hgb Conc 33.8 g/dL (32-36); Mean Corpuscular Hgb 31.9 pg (27.0-32.0); Mean Corpuscular Volume 94.3 fL (81-99); Mean Platelet Vol. 9.9 fl (6.2-12.0); Monocyte# 0.42 X10^3/uL; Monocyte% 5.3 % (0-10); NRBC Flagged by Analyzer 0 % (0-5); Neutrophil # 5.29 X10^3/uL (2.7-7.7); Neutrophil % 67.1 % (47-70); Platelet Count 248 K/mm3 (150-450); RBC Distribution Width CV 12.7 % (11.6-14.6); RBC Distribution Width SD 43.4 fl (35.1-43.9); White Blood Count 7.9 K/mm3 (4.4-11.0)
[2024-12-10 08:55] LABS: Color, Urine Yellow (Yellow); Glucose, Dipstick Normal (Normal); Ketone-Dipstick Negative (Negative); Leukocyte Esterase-Dipstick 500 /ul (Negative); Nitrite-Dipstick Negative (Negative); Occult Blood-Urine 250 /ul (Negative); Protein-Dipstick 100 mg/dl (Negative); Urine Bilirubin Dipstick Negative (Negative); Urine Clarity Cloudy (Clear); Urine Urobilinogen Normal (Normal)
[2024-12-10 09:18] LABS: Bacteria 1+ /hpf (None Seen); Red Blood Cells-Urine 50-100 SEEN /hpf (0-5); White Blood Cells 50-100 SEEN /hpf (0-5)
[2024-12-10 09:21] LABS: Anion Gap 15 (5-15); BUN 13 mg/dL (4-19); BUN/Creat Ratio 19.3 RATIO (10-20); Calcium,Total 9.8 mg/dL (7.6-11.0); Carbon Dioxide 20.4 mmol/L (21.0-32.0); Chloride 103 mmol/L (98-108); Creatinine, Serum 0.69 mg/dL (0.70-1.20); EST Glomerular Filtration Rate 92 (>60); Estimated Creatinine Clearance 72.09 ml/min (50-250); Glucose 200 mg/dL (70-99); Potassium 3.8 mmol/L (3.3-5.1); Sodium Level 139 mmol/L (133-145)
[2024-12-10] MEDS: Ceftriaxone 1 GM/50 ML BAG IV (09:47)
[2024-12-10 10:00] VITALS: BP 138/74; PULSE 73; RESP 16; O2SAT 94
[2024-12-10 10:37] VITALS: BP 134/67; PULSE 72; RESP 16; TEMP 36.6; O2SAT 96
== END 2024-12-10 10:42 | disposition home or self-care (01) ==
PROVIDERS: Emergency Provider Emergency Medicine; PCP Physician Assistant; Visit Provider Emergency Medicine
DX: N39.0 Urinary tract infection, site not specified (principal); E11.9 Type 2 diabetes mellitus without complications; N20.0 Calculus of kidney; Z79.01 Long term (current) use of anticoagulants; R31.9 Hematuria, unspecified; Z90.49 Acquired absence of other specified parts of digestive tract
CPT/HCPCS: 74176; 80048; 81001; 85025; 87086; 87088; 96365; 96375; 99283; A4216; J2405

== ENCOUNTER → 2025-02-26 | Outpatient (CLI) | payer MEDICARE, SELFPAY | END | disposition home or self-care (01) | LOC: LABSPEC 15:38 | PROVIDERS: PCP Physician Assistant; Referring Provider Urology; Visit Provider Urology | DX: R31.21 Asymptomatic microscopic hematuria (principal) | CPT/HCPCS: 87077; 87086; 87088; 87186 ==

== ENCOUNTER → 2025-03-07 | Outpatient (CLI) | payer MEDICARE, SELFPAY ==
--- NOTE | 2025-03-07 18:09 | CT_ITS ---
PROCEDURE: ABDOMEN/PELVIS WITHOUT CONT 03/07/2025 REASON FOR EXAM: KIDNEY STONE TECHNIQUE: ABDOMEN/PELVIS WITHOUT CONT Noncontrast technique limits evaluation of the abdominal and pelvic viscera. Coronal and Sagittal reconstruction series were provided. One or more dose reduction techniques were used (e.g., Automated exposure control, adjustment of the mA and/or kV according to patient size, use of iterative reconstruction technique). RADIATION DOSE SUMMARY: CTDlvol: 20 mGy DLP: 1036 mGycm COMPARISON: 12/10/2024 FINDINGS: Clear lung bases. Normal heart size. Status post cholecystectomy. Unremarkable liver, pancreas, spleen, adrenal glands. On the left, no renal stones. On the right, multiple renal stones measuring up to 5 mm. No hydronephrosis or ureteral stone. Normal bladder. Normal uterus. No retroperitoneal or pelvic adenopathy. No free air. Nondistended bowel. No signs of appendicitis. Diverticulosis. No acute large bowel findings. Status post right THR. Lumbar spine degeneration. No acute abdominal wall findings. CT/Abdomen/Pelvis without Cont IMPRESSION: Right-sided nephrolithiasis. No acute findings. Reading Location: [place] [id number]
== END | disposition home or self-care (01) ==
LOC: CT 17:50
PROVIDERS: PCP Physician Assistant; Referring Provider Urology; Visit Provider Urology
DX: N20.0 Calculus of kidney (principal)
CPT/HCPCS: 74176

== ENCOUNTER 2025-03-21 11:21 | Day surgery (SDC) | payer MEDICARE, SELFPAY ==
--- NOTE | 2025-03-20 09:40 | PAT.ANE_ITS ---
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 When Was Last Pacemaker Check QUESTION #4 FULL TEXT: You/Your Family Experience fever (hyperthermia) with Anesthesia Last Oral Intake Last Oral intake: Last Oral Intake NPO since Meds taken in AM with sips of water? 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 - supply and distribution manager: PONV - supply and distribution manager Female Yes 03/19/25 14:55 HX of Motion Sickness No 03/19/25 14:55 HX of N/V After Surgery No 03/19/25 14:55 Non-Smoker Yes 03/19/25 14:55 Duration of Surgery greater No 03/19/25 14:55 than 60 minutes Number of Risk Factors 2 03/19/25 14:55 PONV Score Moderate Risk 03/19/25 14:55 Height & Weight Height & Weight: Anesthesia: Height & Weight Height 5 ft 3 in 12/10/24 08:00 Respiratory Assessment Respiratory Assessment - supply and distribution manager: Respiratory Tract Infection Hx - supply and distribution manager Hx Respiratory Tract Infection No 03/19/25 14:55 STOP Sleep Apnea STOP Sleep Apnea - supply and distribution manager: STOP Sleep Apnea - supply and distribution manager Hx Hypertension Yes: CONTROLLED ON MED 03/19/25 14:55 Hx Sleep Apnea Yes 03/19/25 14:55 CPAP Yes 03/19/25 14:55 BIPAP No 03/19/25 14:55 Do you snore loudly (louder than talking or can be heard Do you often feel tired/ fatigued/ sleepy during daytime? Has anyone observed you stop breathing during sleep? STOP Results Positive 03/19/25 14:55 QUESTION #5 FULL TEXT : Do you snore loudly (louder than talking or can be heard through closed doors)? 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 Specify any problems Hx of Preganancy in last 3 No 03/19/25 14:55 Months Nurse Filling Out Transfusion VCHRISTIN 03/19/25 14:55 & Questions: Date: 03/19/25 03/19/25 14:55 Time: 14:57 03/19/25 14:55 Patient unable to answer at this time (ie. confused, unrespo /Reproduction History /Reproductive History - supply and distribution manager: /Reproductive Hx- supply and distribution manager Hx Now No 03/19/25 14:55 Gestational Age (in weeks): EDC: Hx Hx Para Hx Section SAB No 03/19/25 14:55 Active Medications Active Medications: Current Medications Generic Name Dose Route Start Last Admin Trade Name Freq PRN Reason Stop Dose Admin Cefazolin Sodium 2 gm/ Sodium 110 mls @ 200 mls/hr 03/21/25 14:55 Chloride IV 03/21/25 15:27 INTRAOP ONE PFS Medical History (Updated 03/19/25 @ 14:55 by Rebecca Redding) High cholesterol Pulmonary embolism Easy bruising Excessive bleeding Former smoker Sleep apnea Shortness of breath on exertion History of stress test Hypertension Cardiology follow-up encounter Kidney stones Non-smoker Atrial fibrillation Wears hearing aid Wears glasses Post-menopausal Diabetes Pulmonary embolism CPAP (continuous positive airway pressure) dependence History of irregular heartbeat Home Medications ?Medication ?Instructions ?Recorded ?Last Taken ?Type apixaban 5 mg tablet (Eliquis) 5 mg PO BID 12/01/22 History diltiazem HCl 240 mg 240 mg PO DAILY 12/01/2207/30 History capsule,extended release 24 hr loratadine 10 mg tablet (Claritin) 10 mg PO DAILY 11/0511/30/22 History metformin 500 mg tablet,extended 500 mg PO BID 3 07/17/24 History release 24 hr propafenone 225 mg tablet 225 mg PO TID 12/01/2207/17 History losartan 25 mg tablet 25 mg PO DAILY 07/18/2407/07 History rosuvastatin 5 mg tablet 5 mg PO DAILY 07/18/2407/17 History allopurinol 100 mg tablet 100 mg PO DAILY #90 tabs Unknown Rx Allergy/AdvReac Type Severity Reaction Status Date / Time chlorpheniramine (From AdvReac Other Verified 03/19/25 14:39 Aller-Chlor Decongestant) oxycodone AdvReac Other Verified 03/19/25 14:39 pseudoephedrine (From AdvReac Other Verified 03/19/25 14:39 Aller-Chlor Decongestant) Family History Mother Diabetes Surgical History (Updated 03/19/25 @ 14:55 by Rebecca Redding) History of total right hip arthroplasty Hx of cystoscopy History of cholecystectomy Knee joint replacement status History of tonsillectomy History of laparoscopic cholecystectomy Social History Smoking Status: Former smoker Audit: Pertinent Findings Pertinent Findings EKG Perinent findings: 07/18/2024. Normal sinus rhythm. Left axis deviation. Nonspecific ST and T wave abnormality. 01/06/2022. Sinus rhythm. Nonspecific QRS widening and anterior fascicular block. Consult pertinent findings: April 19, 2024. Dr. Casey?cardiology. 1. Paroxysmal atrial fibrillation-no symptomatic recurrence. Continue Rythmol, diltiazem, Eliquis. EKG today is normal sinus rhythm. 2. SVT-no symptoms to suggest recurrence. 3. Hypertension?controlled. 4. Obstructive sleep apnea on CPAP-compliant Recommendation Anesthesia Recommendation Anesthesia recommendation: OPTIMIZED for anesthesia
--- NOTE | 2025-03-20 09:40 | PAT.ANE_ITS ---
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 When Was Last Pacemaker Check QUESTION #4 FULL TEXT: You/Your Family Experience fever (hyperthermia) with Anesthesia Last Oral Intake Last Oral intake: Last Oral Intake NPO since Meds taken in AM with sips of water? 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 Female Yes 03/19/25 14:55 HX of Motion Sickness No 03/19/25 14:55 HX of N/V After Surgery No 03/19/25 14:55 Non-Smoker Yes 03/19/25 14:55 Duration of Surgery greater No 03/19/25 14:55 than 60 minutes Number of Risk Factors 2 03/19/25 14:55 PONV Score Moderate Risk 03/19/25 14:55 Height & Weight Height & Weight: Anesthesia: Height & Weight Height 5 ft 3 in 12/10/24 08:00 Respiratory Assessment Respiratory Assessment - ranch supervisor: Respiratory Tract Infection Hx - ranch supervisor Hx Respiratory Tract Infection No 03/19/25 14:55 STOP Sleep Apnea STOP Sleep Apnea - ranch supervisor: STOP Sleep Apnea - ranch supervisor Hx Hypertension Yes: CONTROLLED ON MED 03/19/25 14:55 Hx Sleep Apnea Yes 03/19/25 14:55 CPAP Yes 03/19/25 14:55 BIPAP No 03/19/25 14:55 Do you snore loudly (louder than talking or can be heard Do you often feel tired/ fatigued/ sleepy during daytime? Has anyone observed you stop breathing during sleep? STOP Results Positive 03/19/25 14:55 QUESTION #5 FULL TEXT : Do you snore loudly (louder than talking or can be heard through closed doors)? 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 Specify any problems Hx of Preganancy in last 3 No 03/19/25 14:55 Months Nurse Filling Out Transfusion VCHRISTIN 03/19/25 14:55 & Questions: Date: 03/19/25 03/19/25 14:55 Time: 14:57 03/19/25 14:55 Patient unable to answer at this time (ie. confused, unrespo /Reproduction History /Reproductive History - ranch supervisor: /Reproductive Hx- ranch supervisor Hx Now No 03/19/25 14:55 Gestational Age (in weeks): EDC: Hx Hx Para Hx Section SAB No 03/19/25 14:55 Active Medications Active Medications: Current Medications Generic Name Dose Route Start Last Admin Trade Name Freq PRN Reason Stop Dose Admin Cefazolin Sodium 2 gm/ Sodium 110 mls @ 200 mls/hr 03/21/25 14:55 Chloride IV 03/21/25 15:27 INTRAOP ONE PFS Medical History (Updated 03/19/25 @ 14:55 by Rebecca Redding) High cholesterol Pulmonary embolism Easy bruising Excessive bleeding Former smoker Sleep apnea Shortness of breath on exertion History of stress test Hypertension Cardiology follow-up encounter Kidney stones Non-smoker Atrial fibrillation Wears hearing aid Wears glasses Post-menopausal Diabetes Pulmonary embolism CPAP (continuous positive airway pressure) dependence History of irregular heartbeat Home Medications ?Medication ?Instructions ?Recorded ?Last Taken ?Type apixaban 5 mg tablet (Eliquis) 5 mg PO BID 12/01/22 History diltiazem HCl 240 mg 240 mg PO DAILY 12/01/2207/30 History capsule,extended release 24 hr loratadine 10 mg tablet (Claritin) 10 mg PO DAILY 11/0511/30/22 History metformin 500 mg tablet,extended 500 mg PO BID 3 07/17/24 History release 24 hr propafenone 225 mg tablet 225 mg PO TID 12/01/2207/17 History losartan 25 mg tablet 25 mg PO DAILY 07/18/2407/07 History rosuvastatin 5 mg tablet 5 mg PO DAILY 07/18/2407/17 History allopurinol 100 mg tablet 100 mg PO DAILY #90 tabs Unknown Rx Allergy/AdvReac Type Severity Reaction Status Date / Time chlorpheniramine (From AdvReac Other Verified 03/19/25 14:39 Aller-Chlor Decongestant) oxycodone AdvReac Other Verified 03/19/25 14:39 pseudoephedrine (From AdvReac Other Verified 03/19/25 14:39 Aller-Chlor Decongestant) Family History Mother Diabetes Surgical History (Updated 03/19/25 @ 14:55 by Rebecca Redding) History of total right hip arthroplasty Hx of cystoscopy History of cholecystectomy Knee joint replacement status History of tonsillectomy History of laparoscopic cholecystectomy Social History Smoking Status: Former smoker Audit: Pertinent Findings Pertinent Findings EKG Perinent findings: 07/18/2024. Normal sinus rhythm. Left axis deviation. Nonspecific ST and T wave abnormality. 01/06/2022. Sinus rhythm. Nonspecific QRS widening and anterior fascicular block. Consult pertinent findings: April 19, 2024. Dr. Casey?cardiology. 1. Paroxysmal atrial fibrillation-no symptomatic recurrence. Continue Rythmol, diltiazem, Eliquis. EKG today is normal sinus rhythm. 2. SVT-no symptoms to suggest recurrence. 3. Hypertension?controlled. 4. Obstructive sleep apnea on CPAP-compliant Recommendation Anesthesia Recommendation Anesthesia recommendation: OPTIMIZED for anesthesia
[2025-03-21] VITALS (9 sets, daily range): BP systolic 134–145; BP diastolic 70–83; PULSE 72–78; RESP 16; TEMP 36.1–37.1; O2SAT 93–97; BMI 40.2
[2025-03-21] MEDS: Lactated Ringers 1,000 ML 15 ML IV (12:51)
--- NOTE | 2025-03-21 13:49 | PRE.ANES_ITS ---
ASA Classification* ASA Classification ASA Classification: 3 Assessment & Plan Anesthesia* Anesthesia Assessment Anesthesia Assessment: Discussed sedation and/or anesthesia options, risks, benefits, and alternatives with patient/parents/legal guardian/POA. Questions invited. The patient/parents/legal guardian/POA seems to understand and agrees to proceed with anesthesia plan. Reviewed the physical assessment, medical history, allergy history and patient home medications list prior to surgery/procedure/anesthetic and documented any changes. Performed airway and anesthesia risk assessments. Anesthesia Type Anesthesia Type: General History Source History Obtained from:: Patient and Chart Anesthesia Focused Assessment* Temperature: 98.7 F Pulse Rate: 77 Blood Pressure: 140/70 Respiratory Rate: 16 Pulse Ox: 97 Oxygen Delivery Method: Room Air Airway Assessment Mouth opens: >3 cm Mallampati Score: II Teeth Condition: Intact and Missing Labs Anesthesia Preop lab: CBC WBC 7.9 K/mm3 (4.4-11.0) 12/10/24 08:17 12/10/24 RBC 4.20 M/mm3 (4.2-5.4) 12/10/24 08:17 12/10/24 Hgb 13.4 g/dL (12.0-15.0) 12/10/24 08:17 12/10/24 Hct 39.6 % (37-47) 12/10/24 08:17 12/10/24 Plt Count 248 K/mm3 (150-450) 12/10/24 08:17 12/10/24 CHEMISTRY Potassium 3.8 mmol/L (3.3-5.1) 12/10/24 08:17 12/10/24 Sodium 139 mmol/L (133-145) 12/10/24 08:17 12/10/24 BUN 13 mg/dL (4-19) 12/10/24 08:17 12/10/24 Creatinine 0.69 mg/dL (0.70-1.20) L 12/10/24 08:17 Glucose 200 mg/dL (70-99) H 12/10/24 08:17 12/10/24 POC Glucose 153 mg/dL (74-106) H 03/21/25 12:25 03/21/25 COAG Pre-Assessment Diagnosis/Proposed Procedure Planned Operative Procedure(s): RIGHT URETEROSCOPY LASER AND STENT Anesthesia History 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 When Was Last Pacemaker Check QUESTION #4 FULL TEXT: You/Your Family Experience fever (hyperthermia) with Anesthesia Last Oral Intake Last Oral intake: Last Oral Intake NPO since 07:00 03/21/25 12:28 Meds taken in AM with sips of Yes 03/21/25 12:28 water? 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 - production line assembler: PONV - production line assembler Female Yes 03/19/25 14:55 HX of Motion Sickness No 03/19/25 14:55 HX of N/V After Surgery No 03/19/25 14:55 Non-Smoker Yes 03/19/25 14:55 Duration of Surgery greater No 03/19/25 14:55 than 60 minutes Number of Risk Factors 2 03/19/25 14:55 PONV Score Moderate Risk 03/19/25 14:55 Height & Weight Height & Weight: Anesthesia: Height & Weight Height 5 ft 3 in 03/21/25 12:28 Weight: 103 kg 03/21/25 12:28 Body Mass Index (BMI) 40.2 03/21/25 12:28 Respiratory Assessment Respiratory Assessment - production line assembler: Respiratory Tract Infection Hx - production line assembler Hx Respiratory Tract Infection No 03/19/25 14:55 STOP Sleep Apnea STOP Sleep Apnea - production line assembler: STOP Sleep Apnea - production line assembler Hx Hypertension Yes: CONTROLLED ON MED 03/19/25 14:55 Hx Sleep Apnea Yes 03/19/25 14:55 CPAP Yes 03/19/25 14:55 BIPAP No 03/19/25 14:55 Do you snore loudly (louder than talking or can be heard Do you often feel tired/ fatigued/ sleepy during daytime? Has anyone observed you stop breathing during sleep? STOP Results Positive 03/19/25 14:55 QUESTION #5 FULL TEXT : Do you snore loudly (louder than talking or can be heard through closed doors)? 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 Specify any problems Hx of Preganancy in last 3 No 03/19/25 14:55 Months Nurse Filling Out Transfusion VCHRISTIN 03/19/25 14:55 & Questions: Date: 03/19/25 03/19/25 14:55 Time: 14:57 03/19/25 14:55 Patient unable to answer at this time (ie. confused, unrespo /Reproduction History /Reproductive History - production line assembler: /Reproductive Hx- production line assembler Hx Now No 03/19/25 14:55 Gestational Age (in weeks): EDC: Hx Hx Para Hx Section SAB No 03/19/25 14:55 Active Medications Active Medications: Current Medications Generic Name Dose Route Start Last Admin Trade Name Freq PRN Reason Stop Dose Admin Cefazolin Sodium 2 gm/ Sodium 110 mls @ 200 mls/hr 03/21/25 14:55 Chloride IV 03/21/25 15:27 INTRAOP ONE Lactated Ringer's 1,000 mls @ 15 mls/hr 03/21/25 13:00 03/21/25 12:51 IV 15 mls/hr .Q48H MARIAH Administration PFSH Medical History (Updated 03/19/25 @ 14:55 by Rebecca Redding) High cholesterol Pulmonary embolism Easy bruising Excessive bleeding Former smoker Sleep apnea Shortness of breath on exertion History of stress test Hypertension Cardiology follow-up encounter Kidney stones Non-smoker Atrial fibrillation Wears hearing aid Wears glasses Post-menopausal Diabetes Pulmonary embolism CPAP (continuous positive airway pressure) dependence History of irregular heartbeat Home Medications ?Medication ?Instructions ?Recorded ?Last Taken ?Type apixaban 5 mg tablet (Eliquis) 5 mg PO BID 12/01/22 History diltiazem HCl 240 mg 240 mg PO DAILY 12/01/22 07:00 History capsule,extended release 24 hr loratadine 10 mg tablet (Claritin) 10 mg PO DAILY 11/0503/20/25 History metformin 500 mg tablet,extended 500 mg PO BID 03/20/25 History release 24 hr propafenone 225 mg tablet 225 mg PO TID 12/01/2203/21 07:00 History losartan 25 mg tablet 25 mg PO DAILY 07/18/2403/06 07:00 History rosuvastatin 5 mg tablet 5 mg PO DAILY 07/18/2403/21 History allopurinol 100 mg tablet 100 mg PO QHS 03/20/2503/20 History Allergy/AdvReac Type Severity Reaction Status Date / Time chlorpheniramine (From AdvReac Other Verified 03/21/25 12:28 Aller-Chlor Decongestant) oxycodone AdvReac Other Verified 03/21/25 12:28 pseudoephedrine (From AdvReac Other Verified 03/21/25 12:28 Aller-Chlor Decongestant) Family History Mother Diabetes Surgical History (Updated 03/19/25 @ 14:55 by Rebecca Redding) History of total right hip arthroplasty Hx of cystoscopy History of cholecystectomy Knee joint replacement status History of tonsillectomy History of laparoscopic cholecystectomy Social History Smoking Status: Former smoker Review of Systems (Anesthesia) ROS Narrative System reviewed and no additional complaints, except as documented.
--- NOTE | 2025-03-21 13:49 | PRE.ANES_ITS ---
ASA Classification* ASA Classification ASA Classification: 3 Assessment & Plan Anesthesia* Anesthesia Assessment Anesthesia Assessment: Discussed sedation and/or anesthesia options, risks, benefits, and alternatives with patient/parents/legal guardian/POA. Questions invited. The patient/parents/legal guardian/POA seems to understand and agrees to proceed with anesthesia plan. Reviewed the physical assessment, medical history, allergy history and patient home medications list prior to surgery/procedure/anesthetic and documented any changes. Performed airway and anesthesia risk assessments. Anesthesia Type Anesthesia Type: General History Source History Obtained from:: Patient and Chart Anesthesia Focused Assessment* Temperature: 98.7 F Pulse Rate: 77 Blood Pressure: 140/70 Respiratory Rate: 16 Pulse Ox: 97 Oxygen Delivery Method: Room Air Airway Assessment Mouth opens: >3 cm Mallampati Score: II Teeth Condition: Intact and Missing Labs Anesthesia Preop lab: CBC WBC 7.9 K/mm3 (4.4-11.0) 12/10/24 08:17 12/10/24 RBC 4.20 M/mm3 (4.2-5.4) 12/10/24 08:17 12/10/24 Hgb 13.4 g/dL (12.0-15.0) 12/10/24 08:17 12/10/24 Hct 39.6 % (37-47) 12/10/24 08:17 12/10/24 Plt Count 248 K/mm3 (150-450) 12/10/24 08:17 12/10/24 CHEMISTRY Potassium 3.8 mmol/L (3.3-5.1) 12/10/24 08:17 12/10/24 Sodium 139 mmol/L (133-145) 12/10/24 08:17 12/10/24 BUN 13 mg/dL (4-19) 12/10/24 08:17 12/10/24 Creatinine 0.69 mg/dL (0.70-1.20) L 12/10/24 08:17 Glucose 200 mg/dL (70-99) H 12/10/24 08:17 12/10/24 POC Glucose 153 mg/dL (74-106) H 03/21/25 12:25 03/21/25 COAG Pre-Assessment Diagnosis/Proposed Procedure Planned Operative Procedure(s): RIGHT URETEROSCOPY LASER AND STENT Anesthesia History 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 When Was Last Pacemaker Check QUESTION #4 FULL TEXT: You/Your Family Experience fever (hyperthermia) with Anesthesia Last Oral Intake Last Oral intake: Last Oral Intake NPO since 07:00 03/21/25 12:28 Meds taken in AM with sips of Yes 03/21/25 12:28 water? 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 - wet end helper: PONV - wet end helper Female Yes 03/19/25 14:55 HX of Motion Sickness No 03/19/25 14:55 HX of N/V After Surgery No 03/19/25 14:55 Non-Smoker Yes 03/19/25 14:55 Duration of Surgery greater No 03/19/25 14:55 than 60 minutes Number of Risk Factors 2 03/19/25 14:55 PONV Score Moderate Risk 03/19/25 14:55 Height & Weight Height & Weight: Anesthesia: Height & Weight Height 5 ft 3 in 03/21/25 12:28 Weight: 103 kg 03/21/25 12:28 Body Mass Index (BMI) 40.2 03/21/25 12:28 Respiratory Assessment Respiratory Assessment - wet end helper: Respiratory Tract Infection Hx - wet end helper Hx Respiratory Tract Infection No 03/19/25 14:55 STOP Sleep Apnea STOP Sleep Apnea - wet end helper: STOP Sleep Apnea - wet end helper Hx Hypertension Yes: CONTROLLED ON MED 03/19/25 14:55 Hx Sleep Apnea Yes 03/19/25 14:55 CPAP Yes 03/19/25 14:55 BIPAP No 03/19/25 14:55 Do you snore loudly (louder than talking or can be heard Do you often feel tired/ fatigued/ sleepy during daytime? Has anyone observed you stop breathing during sleep? STOP Results Positive 03/19/25 14:55 QUESTION #5 FULL TEXT : Do you snore loudly (louder than talking or can be heard through closed doors)? 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 Specify any problems Hx of Preganancy in last 3 No 03/19/25 14:55 Months Nurse Filling Out Transfusion VCHRISTIN 03/19/25 14:55 & Questions: Date: 03/19/25 03/19/25 14:55 Time: 14:57 03/19/25 14:55 Patient unable to answer at this time (ie. confused, unrespo /Reproduction History /Reproductive History - wet end helper: /Reproductive Hx- wet end helper Hx Now No 03/19/25 14:55 Gestational Age (in weeks): EDC: Hx Hx Para Hx Section SAB No 03/19/25 14:55 Active Medications Active Medications: Current Medications Generic Name Dose Route Start Last Admin Trade Name Freq PRN Reason Stop Dose Admin Cefazolin Sodium 2 gm/ Sodium 110 mls @ 200 mls/hr 03/21/25 14:55 Chloride IV 03/21/25 15:27 INTRAOP ONE Lactated Ringer's 1,000 mls @ 15 mls/hr 03/21/25 13:00 03/21/25 12:51 IV 15 mls/hr .Q48H MARIAH Administration PFSH Medical History (Updated 03/19/25 @ 14:55 by Rebecca Redding) High cholesterol Pulmonary embolism Easy bruising Excessive bleeding Former smoker Sleep apnea Shortness of breath on exertion History of stress test Hypertension Cardiology follow-up encounter Kidney stones Non-smoker Atrial fibrillation Wears hearing aid Wears glasses Post-menopausal Diabetes Pulmonary embolism CPAP (continuous positive airway pressure) dependence History of irregular heartbeat Home Medications ?Medication ?Instructions ?Recorded ?Last Taken ?Type apixaban 5 mg tablet (Eliquis) 5 mg PO BID 12/01/22 History diltiazem HCl 240 mg 240 mg PO DAILY 12/01/22 07:00 History capsule,extended release 24 hr loratadine 10 mg tablet (Claritin) 10 mg PO DAILY 11/0503/20/25 History metformin 500 mg tablet,extended 500 mg PO BID 03/20/25 History release 24 hr propafenone 225 mg tablet 225 mg PO TID 12/01/2203/21 07:00 History losartan 25 mg tablet 25 mg PO DAILY 07/18/2403/06 07:00 History rosuvastatin 5 mg tablet 5 mg PO DAILY 07/18/2403/21 History allopurinol 100 mg tablet 100 mg PO QHS 03/20/2503/20 History Allergy/AdvReac Type Severity Reaction Status Date / Time chlorpheniramine (From AdvReac Other Verified 03/21/25 12:28 Aller-Chlor Decongestant) oxycodone AdvReac Other Verified 03/21/25 12:28 pseudoephedrine (From AdvReac Other Verified 03/21/25 12:28 Aller-Chlor Decongestant) Family History Mother Diabetes Surgical History (Updated 03/19/25 @ 14:55 by Rebecca Redding) History of total right hip arthroplasty Hx of cystoscopy History of cholecystectomy Knee joint replacement status History of tonsillectomy History of laparoscopic cholecystectomy Social History Smoking Status: Former smoker Review of Systems (Anesthesia) ROS Narrative System reviewed and no additional complaints, except as documented.
--- NOTE | 2025-03-21 14:37 | PCM.HP.STD ---
HPI - General General Date of Service: 03/21/25 Chief Complaint: Right kidney stones HPI Narrative SALVATORE LEE, is a 74 F who presents with multiple right stones in the right kidney causing bleeding and pain off-and-on by the laser the stones possible stent right side [facility] Medical History (Updated 03/19/25 @ 14:55 by Rebecca Redding) High cholesterol Pulmonary embolism Easy bruising Excessive bleeding Former smoker Sleep apnea Shortness of breath on exertion History of stress test Hypertension Cardiology follow-up encounter Kidney stones Non-smoker Atrial fibrillation Wears hearing aid Wears glasses Post-menopausal Diabetes Pulmonary embolism CPAP (continuous positive airway pressure) dependence History of irregular heartbeat Home Medications ?Medication ?Instructions ?Recorded ?Last Taken ?Type apixaban 5 mg tablet (Eliquis) 5 mg PO BID 12/01/22 03/19/25 History diltiazem HCl 240 mg 240 mg PO DAILY 12/01/22 03/21/25 07:00 History capsule,extended release 24 hr loratadine 10 mg tablet (Claritin) 10 mg PO DAILY 12/01/22 03/20/25 History metformin 500 mg tablet,extended 500 mg PO BID 12/01/22 03/20/25 History release 24 hr propafenone 225 mg tablet 225 mg PO TID 12/01/22 03/21/25 07:00 History losartan 25 mg tablet 25 mg PO DAILY 07/18/24 03/20/25 07:00 History rosuvastatin 5 mg tablet 5 mg PO DAILY 07/18/24 03/21/25 History allopurinol 100 mg tablet 100 mg PO QHS 03/20/25 03/20/25 History ciprofloxacin HCl 500 mg tablet 500 mg PO BID #6 tabs 03/21/25 Unknown Rx (Cipro) ibuprofen 600 mg tablet 600 mg PO Q6H PRN pain #20 tabs 03/21/25 Unknown Rx Allergy/AdvReac Type Severity Reaction Status Date / Time chlorpheniramine (From AdvReac Other Verified 03/21/25 12:28 Aller-Chlor Decongestant) oxycodone AdvReac Other Verified 03/21/25 12:28 pseudoephedrine (From AdvReac Other Verified 03/21/25 12:28 Aller-Chlor Decongestant) Family History Mother Diabetes Surgical History (Updated 03/19/25 @ 14:55 by Rebecca Redding) History of total right hip arthroplasty Hx of cystoscopy History of cholecystectomy Knee joint replacement status History of tonsillectomy History of laparoscopic cholecystectomy Social History Smoking Status: Former smoker Vital Signs Vital Signs Vital Signs: 03/21/25 12:28 03/21/25 12:28 03/21/25 13:49 Temperature 98.7 F 98.7 F Temperature Source Temporal Pulse Rate 77 77 Respiratory Rate 16 16 Respiratory Pattern Normal Blood Pressure 140/70 H 140/70 H Blood Pressure Mean 93 Blood Pressure Source Monitor Blood Pressure Position Semi-Fowlers Blood Pressure Location Right Arm Pulse Ox 97 97 Oxygen Delivery Method Room Air Room Air Weight Weight: 103 kg Body Mass Index (BMI) 40.2 Results Lab / Micro Data Labs: Laboratory Results - last 24 hr 03/21/25 12:25: POC Glucose 153 H
--- NOTE | 2025-03-21 14:37 | PCM.DC ---
Discharge Instructions DC O2, CPAP, BIPAP needs Home O2 Discharge instructions: No Dressing / Incision Discharge Activity: Return to Normal Activity and May Not Drive (while taking narcotic pain medications.) Dressing / Incision Call your doctor if you observe: Fever of 101 or Higher Follow Up Care Please Follow Up With: Malik De La Cruz MD When: Call [phone] for an appointment Test Results: Test results from this visit will be discussed in further detail at your follow-up appointment, if applicable. Discharge Plan Admission Primary Reason for Your Visit: Laser of right kidney stones Attending Provider: Malik De La Cruz Primary Care Provider: Fernando Ocasio Instructions Print Language: Slovenian Discharge Orders/Prescriptions Prescriptions: New ciprofloxacin HCl [Cipro] 500 mg tablet 500 mg PO BID Qty: 6 0RF ibuprofen 600 mg tablet 600 mg PO Q6H PRN (Reason: pain) Qty: 20 0RF Continued diltiazem HCl 240 mg capsule,extended release 24hr 240 mg PO DAILY propafenone 225 mg tablet 225 mg PO TID metformin 500 mg tablet extended release 24 hr 500 mg PO BID loratadine [Claritin] 10 mg Tablet 10 mg PO DAILY Eliquis 5 mg tablet 5 mg PO BID Patient Comments: LAST DOSE 03/19/25 AM DOSE losartan 25 mg tablet 25 mg PO DAILY rosuvastatin 5 mg tablet 5 mg PO DAILY allopurinol 100 mg tablet 100 mg PO QHS Referrals / Follow Up: Fernando Ocasio PA-C [Primary Care Provider] - Malik De La Cruz MD [Med Staff - Active Staff] - Disposition Disposition (needs filled in before D/C Order can be placed): Home, Self Care
--- NOTE | 2025-03-21 14:37 | PCM.OPRPT ---
Operative Report (Standard) Operative Information Date of Procedure: 03/21/25 Pre-Operative Diagnosis: Right multiple kidney stones causing pain and blood in obstruction off-and-on Post-Operative Diagnosis: The same Surgery/Procedure Performed: Cystoscopy right ureteroscopy laser lithotripsy of right kidney stones, right retrograde pyelogram, no stent manager administrative services: No Type of Anesthesia: General RN Documented Start/Stop Times: Operation Date: 03/21/25 13:45 Case Time Into Pre-Op 03/21/25 11:51 Out of Pre-Op 03/21/25 13:57 Anesthesia Start 03/21/25 14:01 Into Room 03/21/25 14:01 Procedure Start 03/21/25 14:15 Procedure End 03/21/25 14:34 Procedure Start Time: 14:15 Procedure Stop Time: 14:38 Select all DRAINS/GRAFTS/IMPLANTS that apply: Drains Drain details: No stent Estimated Blood Loss: None Specimen collected: No Description of surgery: This is a 47-year-old female she been having pain off and on the right kidney CAT scan demonstrates multiple stones in the right kidney causing obstruction intermittently and also hematuria she is on blood thinners. She stopped her blood thinners were going to proceed with laser lithotripsy of the stones and possible stent placement on the right side. Patient was taken back to the operative room after smooth duction of anesthesia she was placed in dorsolithotomy position one of the bladder with a 8 Portuguese flexible ureteroscope was able to cannulate the right ureteral orifice without any difficulties went up the ureter all the way with the flexible ureteroscope once I got into the kidney we used manual irrigation she had multiple stones within the right kidney we then used a 200 ?m laser fiber we set the settings to dusting on the thulium laser machine and then all the stones seen were dusted completely and the small little dust we used manual irrigation to make sure that there was no hidden stones after the stones were completely lasered we did a retrograde pyelogram to look at the kidney inspected the kidney upper pole midpole lower pole no other stone seen require way down the ureter no stones along the course of the ureter ureteroscope was removed bladder was drained no stent was placed patient anesthetic reversed plan to see her back in about 6 weeks for ulcerogenic check on her kidney no stent placed. Surgical Findings: Stones in right kidney lasered completely to smaller fragments and dust Complications Complications: No Admit VTE Documentation VTE Present on Admission: No VTE Mechan Device Prophylaxis: SCD's VTE Pharm Prophylaxis ordered?: No
--- NOTE | 2025-03-21 15:00 | PCM.POST.ANE ---
Anesthesia: Postop Eval I Current Vital Signs Temperature: 97 F Pulse Rate: 78 Blood Pressure: 145/79 Respiratory Rate: 16 Pulse Ox: 95 Oxygen Delivery Method: Room Air Assessment Airway patent: Yes Spontaneous unlabored respirations: Yes Mental status: Awake and Calm nausea: No Vomiting: No Anesthesia Complication: No Fluid Hydration Crystalloid volume administer (ml): 600 Total IV fluid infused: 600 Progress Note Anesthesia document: Postop Eval 1 completed: Yes
--- NOTE | 2025-03-21 16:07 | POSTOPAN2_ITS ---
Anesthesia Postop Eval I Sum Postop Eval Completion status Anesthesia document: Postop Eval 1 completed: Yes Anesthesia Postop Eval I Summary Anesthesia Postop Eval I Summary: Anesthesia Postop Eval I: Assessment Summary Airway patent Yes 03/21/25 15:01 [employer].HAROLDOOBChris Spontaneous unlabored Yes 03/21/25 15:01 [employer].SANDRA respirations Mental status Awake,Calm 03/21/25 15:01 [employer].HAROLDOOBChris nausea No 03/21/25 15:01 [employer].HAROLDOOBChris Vomiting No 03/21/25 15:01 [employer].HAROLDOOBChris Anesthesia Postop Eval I: Fluid Summary Crystalloid volume administer 600 03/21/25 15:01 [employer].HAROLDOOBY (ml) Colloids volume administered ( ml) Blood Product volume administered (ml) Total IV fluid infused 600 03/21/25 15:01 [employer].SANDRA Anesthesia Postop Eval I: Summary Notes Anesthesia Complication No 03/21/25 15:01 [employer].SANDRA Anesthesia Complication Comment: Post-operative progress note Anesthesia: Postop Eval II Evaluation Mental status: Awake and Calm Pain Level: 1 nausea: No Vomiting: No Complications Anesthesia Complication: No
--- NOTE | 2025-03-21 16:07 | POSTOPAN2_ITS ---
Anesthesia Postop Eval I Sum Postop Eval Completion status Anesthesia document: Postop Eval 1 completed: Yes Anesthesia Postop Eval I Summary Anesthesia Postop Eval I Summary: Anesthesia Postop Eval I: Assessment Summary Airway patent Yes 03/21/25 15:01 LENS GRINDER.[email or web address] Spontaneous unlabored Yes 03/21/25 15:01 LENS GRINDER.SANDRA respirations Mental status Awake,Calm 03/21/25 15:01 LENS GRINDER.HAROLDOOBChris nausea No 03/21/25 15:01 LENS GRINDER.HAROLDOOBChris Vomiting No 03/21/25 15:01 LENS GRINDER.HAROLDOOBChris Anesthesia Postop Eval I: Fluid Summary Crystalloid volume administer 600 03/21/25 15:01 LENS GRINDER.HAROLDOOBY (ml) Colloids volume administered ( ml) Blood Product volume administered (ml) Total IV fluid infused 600 03/21/25 15:01 LENS GRINDER.SANDRA Anesthesia Postop Eval I: Summary Notes Anesthesia Complication No 03/21/25 15:01 LENS GRINDER.SANDRA Anesthesia Complication Comment: Post-operative progress note Anesthesia: Postop Eval II Evaluation Mental status: Awake and Calm Pain Level: 1 nausea: No Vomiting: No Complications Anesthesia Complication: No
--- NOTE | 2025-03-21 16:07 | PCM.POSTANE2 ---
Anesthesia Postop Eval I Sum Postop Eval Completion status Anesthesia document: Postop Eval 1 completed: Yes Anesthesia Postop Eval I Summary Anesthesia Postop Eval I Summary: Anesthesia Postop Eval I: Assessment Summary Airway patent Yes 03/21/25 15:01 BALL MILL OPERATOR.[email or web address] Spontaneous unlabored Yes 03/21/25 15:01 BALL MILL OPERATOR.SANDRA respirations Mental status Awake,Calm 03/21/25 15:01 BALL MILL OPERATOR.HAROLDOOBChris nausea No 03/21/25 15:01 BALL MILL OPERATOR.HAROLDOOBChris Vomiting No 03/21/25 15:01 BALL MILL OPERATOR.HAROLDOOBChris Anesthesia Postop Eval I: Fluid Summary Crystalloid volume administer 600 03/21/25 15:01 BALL MILL OPERATOR.HAROLDOOBY (ml) Colloids volume administered ( ml) Blood Product volume administered (ml) Total IV fluid infused 600 03/21/25 15:01 BALL MILL OPERATOR.SANDRA Anesthesia Postop Eval I: Summary Notes Anesthesia Complication No 03/21/25 15:01 BALL MILL OPERATOR.SANDRA Anesthesia Complication Comment: Post-operative progress note Anesthesia: Postop Eval II Evaluation Mental status: Awake and Calm Pain Level: 1 nausea: No Vomiting: No Complications Anesthesia Complication: No
--- NOTE | 2025-03-21 16:07 | PCM.POSTANE2 ---
Anesthesia Postop Eval I Sum Postop Eval Completion status Anesthesia document: Postop Eval 1 completed: Yes Anesthesia Postop Eval I Summary Anesthesia Postop Eval I Summary: Anesthesia Postop Eval I: Assessment Summary Airway patent Yes 03/21/25 15:01 TOBACCO FARMWORKER.HAROLDOOBChris Spontaneous unlabored Yes 03/21/25 15:01 TOBACCO FARMWORKER.SANDRA respirations Mental status Awake,Calm 03/21/25 15:01 TOBACCO FARMWORKER.HAROLDOOBChris nausea No 03/21/25 15:01 TOBACCO FARMWORKER.HAROLDOOBChris Vomiting No 03/21/25 15:01 TOBACCO FARMWORKER.HAROLDOOBChris Anesthesia Postop Eval I: Fluid Summary Crystalloid volume administer 600 03/21/25 15:01 TOBACCO FARMWORKER.HAROLDOOBY (ml) Colloids volume administered ( ml) Blood Product volume administered (ml) Total IV fluid infused 600 03/21/25 15:01 TOBACCO FARMWORKER.SANDRA Anesthesia Postop Eval I: Summary Notes Anesthesia Complication No 03/21/25 15:01 TOBACCO FARMWORKER.SANDRA Anesthesia Complication Comment: Post-operative progress note Anesthesia: Postop Eval II Evaluation Mental status: Awake and Calm Pain Level: 1 nausea: No Vomiting: No Complications Anesthesia Complication: No
== END 2025-03-21 16:06 | disposition home or self-care (01) ==
LOC: SDC 11:24 → AC 11:26
PROVIDERS: PCP Physician Assistant; Referring Provider Urology; Visit Provider Urology
PROC: 0TJ98ZZ Inspection of Ureter, Via Natural or Artificial Opening Endoscopic (ICD-10-PCS; CPT 52352; principal; 2025-03-21 13:30)
DX: N20.0 Calculus of kidney (principal); E11.9 Type 2 diabetes mellitus without complications; Z86.711 Personal history of pulmonary embolism; Z87.891 Personal history of nicotine dependence; E78.00 Pure hypercholesterolemia, unspecified; I10 Essential (primary) hypertension; Z79.01 Long term (current) use of anticoagulants; Z79.84 Long term (current) use of oral hypoglycemic drugs; Z79.899 Other long term (current) drug therapy; R31.9 Hematuria, unspecified
CPT/HCPCS: 52353; 00873; 76000; 82962; J2405